=== PATIENT | male | born 1980 | race Caucasian/White ===

== ENCOUNTER → 2022-12-14 | Outpatient (CLI) | payer OTHER | LOC: M RAD 15:26 | PROVIDERS: ATTEND Student in an Organized Health Care Education/Training Program | DX: M79.661 Pain in right lower leg (principal) ==

== ENCOUNTER 2023-06-16 11:40 | Day surgery (SDC) | payer OTHER ==
[~2023-06-16] VITALS: Ht 182.9 cm; Wt 147.8 kg
[~2023-06-16 11:40] MED LIST: BAYE81TA10 PO; NEXI10GR PO; NS 1,000 ML IV ONE
[2023-06-16] MEDS ORDERED: LIDOCAINE 2% 100MG/5ML SDV (FOR ANES.) As Ordered ONE (13:21)
[2023-06-16] MEDS ORDERED: fentaNYL 100 MCG/2 ML INJECTION As Ordered ONE (13:21)
[2023-06-16] MEDS ORDERED: propofoL 200 MG/20 ML VIAL As Ordered ONE ×3 (13:21→13:50)
[2023-06-16 14:13] VITALS: TEMP 96.8
[2023-06-16 14:45] VITALS: BP 109/59; O2SAT 97
== END 2023-06-16 14:54 | disposition home or self-care (01) ==
LOC: M OPP 11:40
PROVIDERS: ATTEND Internal Medicine Gastroenterology
DX: D12.3 Benign neoplasm of transverse colon (principal); D12.4 Benign neoplasm of descending colon; R19.4 Change in bowel habit; K31.7 Polyp of stomach and duodenum; R12 Heartburn; Z87.891 Personal history of nicotine dependence; G47.30 Sleep apnea, unspecified; Z79.82 Long term (current) use of aspirin; Z79.899 Other long term (current) drug therapy
CPT/HCPCS: 43251; 45385; 88305; J3010

== ENCOUNTER 2024-03-28 19:16 | Emergency (ER) | payer OTHER ==
[~2024-03-28] VITALS: Ht 182.9 cm; Wt 131.8 kg
[~2024-03-28 19:16] MED LIST changes: -NS 1,000 ML IV ONE
[2024-03-28 20:26] LABS: BASO % 0.3 % (0.0-1.0); EOS % 0.3 % (0.0-3.0); HEMATOCRIT 43.8 % (42.0-52.0); HEMOGLOBIN 15.6 g/dl (13.5-17.5); LYMPH # 1.2 10^3/uL (1.5-5.0); LYMPH % 15.3 % (24.0-44.0); MEAN CORPUSCULAR HEMOGLOBIN 30.9 pg (27.0-33.0); MEAN CORPUSCULAR HGB CONC 35.6 g/dl (32.0-36.5); MEAN CORPUSCULAR VOLUME 86.7 fl (80.0-96.0); MONO # 0.3 10^3/uL (0.0-0.8); MONO % 3.7 % (2.0-8.0); NEUTROPHILS % 80.1 % (36.0-66.0); PLATELET COUNT, AUTOMATED 285 10^3/uL (150-450); RED BLOOD COUNT 5.05 10^6/uL (4.30-6.10); WHITE BLOOD COUNT 7.5 10^3/uL (4.0-10.0)
[2024-03-28 20:45] LABS: ALKALINE PHOSPHATASE 93 U/L (40-129); ALT/SGPT 87 U/L (7.0-40); AST/SGOT 28 U/L (<34); BILIRUBIN,DIRECT 0.3 MG/DL (<0.4); BILIRUBIN,TOTAL 0.7 MG/DL (0.3-1.2); BLOOD UREA NITROGEN 10 MG/DL (9-23); CALCIUM LEVEL 9.3 MG/DL (8.5-10.1); CARBON DIOXIDE LEVEL 24 MMOL/L (20-31); CHLORIDE LEVEL 104 MMOL/L (98-107); GLOMERULAR FILTRATION RATE > 60.0 (>60); GLUCOSE, FASTING 199 MG/DL (60-100); POTASSIUM SERUM 3.7 MMOL/L (3.5-5.1); SODIUM LEVEL 139 MMOL/L (136-145); TOTAL PROTEIN 7.1 G/DL (5.7-8.2)
[2024-03-28 21:06] LABS: AMPHETAMINES LEVEL URINE NEGATIVE (NEGATIVE); BARBITURATES URINE NEGATIVE (NEGATIVE); BENZODIAZEPINES URINE NEGATIVE (NEGATIVE); CANNABINOIDS URINE NEGATIVE (NEGATIVE); METHADONE URINE NEGATIVE (NEGATIVE); OPIATES URINE NEGATIVE (NEGATIVE); PHENCYCLIDINE URINE NEGATIVE (NEGATIVE)
[2024-03-28 21:07] LABS: COCAINE METABOLITE URINE POSITIVE (NEGATIVE)
[2024-03-28 21:13] LABS: ETHYL ALCOHOL (ETHANOL) 0.006 % (0.000-0.010)
[2024-03-28 21:15] LABS: CPK CREATINE PHOSPHOKINASE 121 U/L (46-171); SALICYLATE LEVEL < 3.0 MG/DL (<30)
[2024-03-28 21:45] LABS: MAGNESIUM LEVEL 2.2 MG/DL (1.8-2.4)
[2024-03-28 22:21] LABS: FREE T4 1.51 NG/DL (0.89-1.76)
[2024-03-28] MEDS: NS 1,000 ML IV ONE (22:30)
[2024-03-28] MEDS: cefTRIAXone SOD 1 GM in DEXTROSE 5% (D5W) ADV/MINI-BAG 50 ML IV ONE (22:30)
[2024-03-28] MEDS: ONDANSETRON 4MG 2ML VIAL IV ONE (22:30)
[2024-03-28 22:53] LABS: TOTAL T3 104.3 NG/DL (60.0-181.0)
[2024-03-29] MEDS: NS 1,000 ML IV ONE (01:00)
[2024-03-29 01:38] LABS: CPK CREATINE PHOSPHOKINASE 199 U/L (46-171)
[2024-03-29 01:42] LABS: CK-MB VALUE MASS < 1.0 NG/ML (<3.6)
[2024-03-29 04:08] VITALS: BP 129/69; TEMP 97.5; O2SAT 96
== END 2024-03-29 04:08 | disposition home or self-care (01) ==
LOC: EDBD 19:16 → M ED 19:16
DX: G40.009 Localization-related (focal) (partial) idiopathic epilepsy and epileptic syndromes with seizures of localized onset, not intractable, without status epilepticus (principal); F14.10 Cocaine abuse, uncomplicated; K21.9 Gastro-esophageal reflux disease without esophagitis; F12.10 Cannabis abuse, uncomplicated; F10.10 Alcohol abuse, uncomplicated; F17.220 Nicotine dependence, chewing tobacco, uncomplicated; Z79.82 Long term (current) use of aspirin; Z79.899 Other long term (current) drug therapy
CPT/HCPCS: 51701; 70450; 71045; 72125; 80047; 80048; 80076; 80143; 80307; 81001; 82077; 82550; 82553; 83735; 84439; 84443; 84480; 84484; 85025; 87880; 93005; 93041; 94760; 96361; 96365; 96375; 99285; J0696; J2405

== ENCOUNTER 2024-12-14 06:03 | Emergency (ER) | payer OTHER ==
[~2024-12-14] VITALS: Ht 182.9 cm; Wt 113.0 kg
[2024-12-14 06:42] LABS: BASO # 0.0 10^3/uL (0.0-0.2); BASO % 0.5 % (0.0-1.0); EOS # 0.0 10^3/uL (0.0-0.5); EOS % 0.2 % (0.0-3.0); LYMPH # 2.8 10^3/uL (1.5-5.0); LYMPH % 33.8 % (24.0-44.0); MONO # 0.5 10^3/uL (0.0-0.8); MONO % 6.6 % (2.0-8.0); NEUTROPHILS # 4.8 10^3/uL (1.5-8.5); NEUTROPHILS % 58.7 % (36.0-66.0); PLATELET COUNT, AUTOMATED 348 10^3/uL (150-450)
[2024-12-14 06:59] LABS: ETHYL ALCOHOL (ETHANOL) < 0.003 % (0.000-0.010)
[2024-12-14 07:01] LABS: ALT/SGPT 29 U/L (7.0-40); AST/SGOT 21 U/L (<34); CALCIUM LEVEL 8.6 MG/DL (8.5-10.1); CARBON DIOXIDE LEVEL 22 MMOL/L (20-31); CHLORIDE LEVEL 105 MMOL/L (98-107); CREATININE FOR GFR 1.12 MG/DL (0.70-1.30); GLOMERULAR FILTRATION RATE 82.1 (>60); MAGNESIUM LEVEL 2.2 MG/DL (1.8-2.4); PHOSPHORUS LEVEL 3.8 MG/DL (2.5-4.9); POTASSIUM SERUM 4.4 MMOL/L (3.5-5.1); SODIUM LEVEL 141 MMOL/L (136-145)
[2024-12-14] MEDS: levETIRAcetam INJection 1,500 MG in IV 1 EA IV ONE (07:41)
[2024-12-14] MEDS: VALPROATE SOD INJ 500 MG in D5W 50 ML IV ONE (08:43)
[2024-12-14 08:51] LABS: AMPHETAMINES LEVEL URINE NEGATIVE (NEGATIVE)
[2024-12-14 08:52] LABS: BARBITURATES URINE NEGATIVE (NEGATIVE); BENZODIAZEPINES URINE NEGATIVE (NEGATIVE); CANNABINOIDS URINE NEGATIVE (NEGATIVE); COCAINE METABOLITE URINE POSITIVE (NEGATIVE); METHADONE URINE NEGATIVE (NEGATIVE); OPIATES URINE NEGATIVE (NEGATIVE); PHENCYCLIDINE URINE NEGATIVE (NEGATIVE)
[2024-12-14 09:30] VITALS: BP 126/62; TEMP 97.4; O2SAT 97
[2024-12-14] MEDS ORDERED: DEPA1TAB3 PO (09:35)
== END 2024-12-14 09:58 | disposition home or self-care (01) ==
LOC: M ED 06:03 → EDBD 06:03 → M ED 09:58
DX: G40.909 Epilepsy, unspecified, not intractable, without status epilepticus (principal); F14.10 Cocaine abuse, uncomplicated; E78.5 Hyperlipidemia, unspecified; G47.33 Obstructive sleep apnea (adult) (pediatric); F10.10 Alcohol abuse, uncomplicated; F12.10 Cannabis abuse, uncomplicated; Z87.891 Personal history of nicotine dependence; Z79.82 Long term (current) use of aspirin; Z79.899 Other long term (current) drug therapy
CPT/HCPCS: 80048; 80076; 80307; 82077; 82140; 82330; 83605; 83735; 84100; 85025; 93041; 94760; 96365; 96375; 99285; J1953; J2060